=== PATIENT | male | born 1985 | race Asian ===

== ENCOUNTER 2019-02-04 19:52 | Emergency (ER) | payer SELFPAY | END 2019-02-04 20:22 | disposition left against medical advice (07) | LOC: ER 19:52 | DX: S69.91XA Unspecified injury of right wrist, hand and finger(s), initial encounter (principal); Z53.21 Procedure and treatment not carried out due to patient leaving prior to being seen by health care provider; W23.0XXA Caught, crushed, jammed, or pinched between moving objects, initial encounter; Y93.89 Activity, other specified; Y92.89 Other specified places as the place of occurrence of the external cause; Y99.8 Other external cause status ==